=== PATIENT | female | born 1945 | race Caucasian/White ===

== ENCOUNTER 2025-03-15 10:09 | Outpatient (AMB) | payer OTHER, MEDICARE, SELFPAY ==
--- NOTE | 2025-03-15 10:14 | A.OFFPC_ITS ---
Vital Signs 03/15/25 10:17 Height 5 ft Weight 179 lb 8 oz BMI 35.1 BP 120/74 Blood Pressure Location Lt brachial Position Sitting Respiration 16 Pulse 78 Pulse Source Pulse Oximeter Temp 98.5 F Temp Source Oral Pulse Oximetry (%) 96 Oxygen Delivery Method Room Air Intake Visit Reasons: follow up diabetes, HTN Internal Medicine Doctor Required: No Accompanied by: Self / Same As Patient Allergies dextromethorphan (From Robitussin Cough and Cold CF) Allergy (Intermediate, Verified 03/15/25 10:14) Flushing guaifenesin (From Robitussin Cough and Cold CF) Allergy (Intermediate, Verified 03/15/25 10:14) Flushing phenylephrine (From Robitussin Cough and Cold CF) Allergy (Intermediate, Verified 03/15/25 10:14) Flushing atorvastatin Adverse Reaction (Severe, Verified 03/15/25 10:14) ABNORMAL LFTS Medication List - Last Reconciled 03/15/25 by Silvia Kaufman MD allopurinol 200 mg PO DAILY aspirin (Adult Low Dose Aspirin) 81 mg PO DAILY cholecalciferol (vitamin D3) 25 mcg PO DAILY cyclosporine 0.05% drps ophthalmic (eye) BID doxycycline hyclate 100 mg PO BID epinephrine IM flaxseed oil 1,000 mg PO DAILY levothyroxine 137 mcg PO DAILY mecobalamin (vitamin B12) 1,000 mcg PO .every other day metformin 500 mg PO TID omega 9-bfo-snp-fish oil 1,000 (120-180) mg (Fish Oil) 1 cap PO DAILY valsartan-hydrochlorothiazide 80-12.5 mg 1 tab PO DAILY Tobacco use date assessed: 03/15/25 Fall risk assessment: No Falls in past year Last assessed Fall Risk: 03/15/25 Dental Screening Dental Screen Date: 03/15/25 Did you have a dental visit in the last 12 months?: Yes Did you have a dental problem in the last 6 months where you did not have access to dental care?: No Was dental information given to patient?: Patient has dentist HPI HPI Comments History of Present Illness Details History of Present Illness The patient is an 80-year-old female presenting for a follow-up of Type 2 Diabetes Mellitus, HTN, hypothyroidism, alongside concerns of reduction in height over recent years. Historically, she experienced a decrease in height. Her current management for diabetes includes regular monitoring with A1c testing, while her blood pressure is controlled on antihypertensive medications. She noted lower extremity edema, more noticeable in lateral malleolus of left lower extremity. Has also noted similar symptoms when she had gout flares. The patient continually manages everyday activities and seeks more engaging social activities. Hypothyroidism- on levothyroxine Diabetes mellitus type 2- on metformin Gout- on allopurinol Pancreatic pseudocyst- has had imaging done at [facility]- due for repeat CBC, has seen environmental communications specialist in the past Sjogren's syndrome-stable, established with opthalmologist Dr. Valdovinos Review of Systems - General: Denies significant weight los s; reports reduction in height. - Cardiovascular: Reports episodic ankle edema, particularly on the left. - Gastrointestinal: constipation. - Genitourinary: Reports nocturia, rare incontinence. - Neurological: Denies significant dizzi ness or syncope. - Musculoskeletal: Reports reduction in height. - Psychiatric: occasional loneliness in setting of being a PHYSICAL EXAMINATION General: NAD Chest: CTABL. Card: normal s1, s2, soft murmur across precordium Abd: SNTND, +BS Extremities: trace edema bilaterally, left lateral malleolus- small effusion noted Neuro: AOX3 Assessment and Plan 1. Type 2 Diabetes Mellitus Managed with ongoing A1c testing 2. Essential Hypertension Current treatment continues; blood pressure monitoring planned. 3. Height Reduction Bone density scan scheduled to evaluate potential causes. 4. Peripheral Edema Advised regular leg elevation; monitoring signs of flare-ups linked to gout. P atient to [facility] office if any increased swelling and pain for possible imaging. 5. Sj?gren?s Syndrome Maintained oral hygiene practices 6. Preventative Reviewed recent immunizations: RSV and influenza. Plan Management of Type 2 Diabetes Mellitus includes regular A1c testing. Essential Hypertension is controlled with current medication and blood pressure checks. Height loss prompts a bone density test to investigate potential osteoporosis. We discussed leg elevation to manage edema. Discussion Notes I discussed the importance of maintaining control over diabetes and hypertension through regular testing and monitoring. The patient is scheduled for bone density evaluation, addressing her concerns of reduced stature and potential osteoporosis. Highlighted the importance of regular leg elevation. Patient Instructions - Continue monitoring blood sugar levels and adhere to diabetes management plan. - Maintain current blood pressure medica tions and check levels regularly. - Schedule and complete bone density sca n. - Engage in social or support groups for emotional health support. - Elevate legs regularly to reduce swell ing. PFSH Medical History (Updated 03/15/25 @ 16:34 by Silvia Kaufman MD) Postmenopausal COPD (chronic obstructive pulmonary disease) Obstructive sleep apnea Spinal stenosis Gout History of ITP Surgical History (Updated 03/12/25 @ 10:24 by Silvia Kaufman MD) History of thyroid surgery History of nasal surgery History of cataract surgery History of carpal tunnel surgery H/O rotator cuff surgery Family History (Updated 03/15/25 @ 16:36 by Silvia Kaufman MD) Mother Coronary artery disease Maternal Grandmother Diabetes mellitus Father Coronary artery disease Alcoholism Paternal Grandfather Coronary artery disease Hypertension Brother Alcoholism Sister No problems noted. Son Throat cancer Social History Housing: House Patient Tobacco Use Status: Former Tobacco user Years Smoked: 46 years e-Cigarette/Vaping Use: Never Used service: No Current occupational status: retired Questionnaire AUDIT C Alcohol Use Questionnaire (AUDIT-C) 1. How often do you have a drink containing alcohol?: Never 3. How often do you have six or more drinks on one occasion?: Never Total Score: 0 Review of Systems Narrative - General: Denies significant weight loss; reports reduction in height. - Cardiovascular: Reports episodic ankle edema, particularly on the left. - Dermatological: Reports itching. - Gastrointestinal: Denies significant issues; uses protective measures against constipation. - Genitourinary: Reports nocturia, rare incontinence. - Neurological: Denies significant dizziness or syncope. - Musculoskeletal: Reports reduction in height. - Psychiatric: Reports occasional loneliness Physical exam (Primary Care) Vital Signs: Last Vital Signs Temp 98.5 F 03/15/25 10:17 Pulse 78 03/15/25 10:17 Resp 16 03/15/25 10:17 BP 120/74 03/15/25 10:17 Pulse Ox 96 03/15/25 10:17 Oxygen Delivery Method Room Air 03/15/25 10:17 BMI result Body Mass Index 35.1 Tobacco/Smoking Status: Tobacco use Status Tobacco use date assessed 03/15/25 03/15/25 10:16 Patient Tobacco Use Status Former Tobacco user 03/15/25 10:25 e-Cigarette/Vaping Use Never Used 03/15/25 10:25 Narrative General: NAD Chest: CTABL. Card: normal s1, s2, no m/r/g Abd: SNTND, +BS Extremities: no edema Neuro: AOX3 Coding Level of Care Code Est Pt Level 4 (59145) Complex EM visit Add On G2211 Diagnoses Controlled type 2 diabetes mellitus without complication, without long-term current use of insulin E11.9 Diabetes mellitus complication status: without complication Diabetes mellitus halfway insulin use: without termite control technician use Primary hypertension I10 Hypertension type: primary hypertension Acquired hypothyroidism E03.9 Hypothyroidism type: acquired Gout of multiple sites, unspecified cause, unspecified chronicity M10.9 Chronicity: unspecified Gout etiology: unspecified cause Gout site: multiple sites Sjogren's syndrome, with unspecified organ involvement M35.00 Sjogren organ or system involvement: unspecified organ involvement History of ITP Z86.2 Assessment & Plan Assessment & Plan (1) Diabetes mellitus type 2, controlled: Code(s): E11.9 - Type 2 diabetes mellitus without complications Category: Medical Qualifiers: Diabetes mellitus complication status: without complication Diabetes mellitus termite control technician insulin use: without halfway use Qualified Code(s): E11.9 - Type 2 diabetes mellitus without complications Plan: see above (2) Hypertension: Code(s): I10 - Essential (primary) hypertension Category: Medical Qualifiers: Hypertension type: primary hypertension Qualified Code(s): I10 - Essential (primary) hypertension Plan: see above (3) Hypothyroidism: Code(s): E03.9 - Hypothyroidism, unspecified Category: Medical Qualifiers: Hypothyroidism type: acquired Qualified Code(s): E03.9 - Hypothyroidism, unspecified Plan: see above (4) Gout: Code(s): M10.9 - Gout, unspecified Category: Medical Qualifiers: Chronicity: unspecified Gout etiology: unspecified cause Gout site: multiple sites Qualified Code(s): M10.9 - Gout, unspecified Plan: see above (5) Sjogren syndrome: Code(s): M35.00 - Sjogren syndrome, unspecified Category: Medical Qualifiers: Sjogren organ or system involvement: unspecified organ involvement Qualified Code(s): M35.00 - Sjogren syndrome, unspecified Plan: see above (6) History of ITP: Code(s): Z86.2 - Personal history of diseases of the blood and blood-forming organs and certain disorders involving the immune mechanism Category: Medical Plan: see above Orders: Orders Comprehensive Met. Panel Today E03.9 - Hypothyroidism, unspecified, E11.9 - Type 2 diabetes mellitus without complications, I10 - Essential (primary) hypertension Hemoglobin A1c Today E11.9 - Type 2 diabetes mellitus without complications Uric Acid Today M10.9 - Gout, unspecified XR DEXA axial skeleton Today Z78.0 - Asymptomatic menopausal state Magnesium Today I10 - Essential (primary) hypertension Microalbumin, Random (w Creat) Today E11.9 - Type 2 diabetes mellitus without complications Complete Blood Count Auto Diff Today Z86.2 - Personal history of diseases of the blood and blood-forming organs and certain disorders involving the immune mechanism TSH reflex Free T4 Today E03.9 - Hypothyroidism, unspecified Vitamin B12 and Folate Today E03.9 - Hypothyroidism, unspecified, M35.00 - Sjogren syndrome, unspecified Patient Instructions: SOMEONE WILL CALL YOU TO SCHEDULE BONE DENSITY GET LABS TODAY
[2025-03-15 10:17] VITALS: BP 120/74; PULSE 78; RESP 16; TEMP 36.9; O2SAT 96; BMI 35.1
== END 2025-03-15 11:30 | disposition home or self-care (01) ==
LOC: HO.HMCHD 10:10
PROVIDERS: PCP Internal Medicine; Visit Provider Internal Medicine
DX: E11.9 Type 2 diabetes mellitus without complications (principal); I10 Essential (primary) hypertension; E03.9 Hypothyroidism, unspecified; M10.9 Gout, unspecified; M35.00 Sjogren syndrome, unspecified; Z86.2 Personal history of diseases of the blood and blood-forming organs and certain disorders involving the immune mechanism

== ENCOUNTER → 2025-03-15 10:09 | Outpatient (BNVA) | payer OTHER, MEDICARE, SELFPAY | PROVIDERS: PCP Internal Medicine; Visit Provider Internal Medicine | DX: E11.9 Type 2 diabetes mellitus without complications (principal); I10 Essential (primary) hypertension; E03.9 Hypothyroidism, unspecified; M10.9 Gout, unspecified; M35.00 Sjogren syndrome, unspecified; K86.3 Pseudocyst of pancreas; Z86.2 Personal history of diseases of the blood and blood-forming organs and certain disorders involving the immune mechanism; Z79.84 Long term (current) use of oral hypoglycemic drugs; Z79.899 Other long term (current) drug therapy | CPT/HCPCS: 99212 ==

== ENCOUNTER 2025-03-15 11:37 | Outpatient (REF) | payer OTHER, MEDICARE, SELFPAY ==
[2025-03-15 12:01] LABS: MANUAL DIFF FLAG NO
[2025-03-15 12:09] LABS: Mean Corpuscular HGB Conc 32.5 g/dl (31.0-35.0); NRBC Abs Auto 0.000 X10*3/uL (0.0-0.012); NRBC Pct Auto 0.0 /100WBC (0.0-0.2); PLT CLUMP 1; SCAN SMEAR FLAG 1
[2025-03-15 12:11] LABS: Hematocrit 38.5 % (37.0-47.0); Hemoglobin 12.5 g/dl (12.0-16.0); Imm Gran Abs Auto 0.02 X10*3/uL (0.00-0.03); Imm Gran Pct Auto 0.3 % (0.0-0.4); Lymphocytes Absolute Auto 2.7 X10*3/uL (1.2-4.9); Mean Corpuscular Hemoglobin 28.5 pg (27.0-33.0); Mean Corpuscular Volume 87.7 fL (80.0-98.0); Platelet Count 122 X10*3/uL (160-400); Red Blood Count 4.39 X10*6/uL (4.20-5.50); White Blood Count 7.2 X10*3/uL (4.8-10.8)
[2025-03-15 12:44] LABS: Alanine Aminotransferase 17 U/L (0-31); Albumin Level 4.7 g/dL (3.5-5.0); Alkaline Phosphatase 66 U/L (39-117); Anion Gap 16 (12-20); Aspartate Amino Transferase 23 U/L (5-31); Blood Urea Nitrogen 21 mg/dL (9-16); Calcium 9.6 mg/dL (8.4-10.2); Carbon Dioxide 25 mmol/L (22-29); Chloride 104 mmol/L (96-108); Estimated Glomerular Filt Rate 52; Potassium 3.9 mmol/L (3.3-5.1); Sodium 141 mmol/L (135-145); Total Protein 7.2 g/dL (6.5-8.0); Uric Acid 5.1 mg/dL (2.4-5.7)
[2025-03-15 13:15] LABS: Folate 9.5 ng/mL (> or = 4.0); Vitamin B12 1020 pg/mL (200-900)
[2025-03-15 13:49] LABS: Magnesium 1.7 mg/dL (1.6-2.6)
[2025-03-15 14:14] LABS: Microalbum/Creatinine Ratio Ur 35.1 ug/mg cr (<30)
[2025-03-15 14:27] LABS: Free T4 (Free Thyroxine) 1.38 ng/dL (0.71-1.85)
--- OUTSIDE RECORDS SUMMARY | 2025-03-15 14:30 | XMS_ITS | Clinical Summary ---
Author Organization [facility] Address [address] [place] [id number] Phone Care Team Providers Care Faculty Physician Name Role Phone Silvia Kaufman MD Primary Care Provider + Social History Tobacco Use Types Packs/Day Years Used Date Smoking Tobacco: Never Assessed Education Answer Date Recorded Are you interested in more education? Not on jairo e 07/03/2024 Are you concerned about learning? Not on file 07/03/2024 No 07/03/2024 No 07/03/2024 Digital Access Answer Date Recorded No 07/03/2024 No 07/03/2024 Reliable internet access at home? Not on file 07/03/2024 Device with a working camera? Not on file Comments Unknown Sex and Gender Information Value Date Recorded Sex Assigned at Not on file Legal Sex Female 12:39 PM EST Gender Identity Not on file Sexual Orientation Not on file Plan of Treatment Health Maintenance Due Date Last Done Comments Adult Td,Tdap Booster 1945 DEPRESSION SCREENING 1955 PNEUMOCOCCAL VACCINES (50+ y ears) (1 of 1 - PCV) 1993 ZOSTER VACCINES (1 of 2) 1993 OSTEOPOROSIS SCREENING INITI AL (ONE-TIME) 01/12/2008 RSV VACCINE (1 - 1-dose 75+ series) 2018 INFLUENZA VACCINE (#1) 2024 COVID-19 VACCINE ( - 2024-2 6 season) 2025 HEPATITIS A VACCINES Aged Out No long er eligible based on patient's age to complete this topic HIB VACCINES Aged Out No longer eligi ble based on patient's age to complete this topic MENINGOCOCCAL VACCINES (ACWY) Aged Out No longer eligible based on patient's age to complete this topic MENINGOCOCCAL VACCINES (B) Aged Out N o longer eligible based on patient's age to complete this topic Medical Devices Not on file Insurance MEDICARE PART A & B [facility] MEDICARE SUPPLEMENT MEDICARE PART A & B FOR LIFE MEDICARE SUPPLEMENT MEDICARE PART A & B FOR LIFE MEDICARE SUPPLEMENT MEDICARE PART A & B FOR LIFE MEDICARE SUPPLEMENT MEDICARE PART A & B FOR LIFE MEDICARE SUPPLEMENT MEDICARE PART A & B FOR LIFE MEDICARE SUPPLEMENT Care Teams Faculty Physician Relationship Specialty Start Date End Date Silvia Kaufman MD [facility] [place] [address] PCP - General Internal Medicine 06/30/24 Additional Source Comments The information contained in this document represents components of the legal health record. It is not the complete legal health record.[facility]
== END 2025-03-15 11:38 | disposition home or self-care (01) ==
LOC: HO.10HDL 11:37
PROVIDERS: Visit Provider Internal Medicine
DX: E11.9 Type 2 diabetes mellitus without complications (principal); M35.00 Sjogren syndrome, unspecified; I10 Essential (primary) hypertension; E03.9 Hypothyroidism, unspecified; M10.9 Gout, unspecified; Z86.2 Personal history of diseases of the blood and blood-forming organs and certain disorders involving the immune mechanism
CPT/HCPCS: 36415; 80053; 82043; 82570; 82607; 82746; 83036; 83735; 84439; 84443; 84550; 85025

== ENCOUNTER 2025-05-26 09:35 | Outpatient (REF) | payer MEDICARE, OTHER, SELFPAY ==
--- OUTSIDE RECORDS SUMMARY | 2025-05-26 10:04 | XMS_ITS | Patient Health Record ---
[facility] Address [address] [place] [address] Care Team Providers Care Preparation Operator Name Role Phone Silvia Kaufman Primary Care Provider Vincent Johnson Unavailable [phone] Allergies Allergen (clinical drug ingredient) Drug/Non Drug Allergy documented on EMR Reaction Allergy Type Onset Date Status sulfa can't breathe Drug Allergy Act tran Reason For Referral No Information Medications Medication SIG (Take, Route, Frequency, Duration) Notes Start Date End Date Status Extra-Depth Diabetic Shoes with 3 Pair Custom heat-molded multi-density innersoles . for 1 year . Dx: 250.00,735.4,701; Duration: . Active metFORMIN HCl 500 MG 1 tablet with meals Orally Twice a day Active Doxycycline Hyclate 100 MG TAKE 1 TABLET TWICE A DAY Oral; Duration: 30 Active Zarontin Active rOPINIRole HCl 1 MG TAKE 1 TABLET BY CORNEL TH EVERY EVENING Oral; Duration: 30 Not-Taking Flaxseed Oil 1000 MG Orally 09/14/2013 Not-Taking Fish Oil 1000 MG 1 capsule Orally Onc e a day 09/14/2013 Not-Taking Restasis Active Valsartan-hydroCHLOROthia zide 80-12.5 MG 1 tablet Orally Once a day 09/14/2013 Active Immunizations Vaccine Route Administration Date Status Comme nts Influenza Unknown 02/29/2016 Administered Social History Tobacco use other than smoking: Question Answer Notes Are you an other tobacco user? No Problems Problem Type SNOMED Code ICD Code Onset Dates Problem Status W/U Status Risk Notes Problem Acquired hallux valgus (19096438) Hallux valgus (acquired), left foot (M20.12) Active confirmed Problem Acquired hallux valgus (41289155) Hallux valgus (acquired), right foot (M20.11) Active confirmed Problem Polyneuropathy due to type 2 diabetes mellitus (748464771) Type 2 diabetes mellitus with diabetic polyneuropathy (E11.42) Active confirmed Plan Of Treatment Pending Test Test Name Order Date [id number] NAIL, 6 OR MORE 09/14/2013 [id number] NAIL, 6 OR MORE 09/10/2014 [id number] NAIL, 6 OR MORE 09/09/2015 [id number] NAIL, 6 OR MORE 09/07/2016 [id number] SKIN LESIONS, OVER 4 09/08/19 17 [id number] SKIN LESIONS, OVER 4 09/09/19 16 [id number] SKIN LESIONS, OVER 4 09/11/19 15 Insurance Providers Payer Name Payer Address Payer Phone Subscriber Number Group Number Insured Name Patient Relationship to Insured Coverage Start Date Coverage End Date Medicare [employer] [address] [place] [address] [phone] [id number] Jennifer Vides Self - patient is the insured for Life [address] [place] [address] [id number] Ethan Vides Spouse - patient is the spouse of the insured Medical (General) History Medical History History ICD Code Cataracts Chicken pox COPD Diabetes mellitus High blood pressure Lung disease Measles osteoarthritis Sjogren syndrome Surgical History Surgery Date(Month/Year) rotator cuff tear repair 03/28/2012 carpal tunnel surgery 1986 Hospitalization History Reason Date(Month/Year) Rodirguez- bee sting 10/30/13
--- OUTSIDE RECORDS SUMMARY | 2025-05-26 10:04 | XMS_ITS | Clinical Summary ---
Author Organization [facility] Address [address] [place] [phone] Phone Care Team Providers Care Recycling Attendant Name Role Phone Silvia Kaufman MD Primary [...] Insurance MEDICARE PART A & B FOR [facility] MEDICARE SUPPLEMENT [facility] Address: [id number] [place] [address] MEDICARE PART A & B FOR LIFE MEDICARE SUPPLEMENT MEDICARE PART A & B FOR LIFE MEDICARE SUPPLEMENT [facility] Address: [address] [address] MEDICARE PART A & B FOR LIFE MEDICARE SUPPLEMENT [facility] Address: [address] [address] MEDICARE PART A & B FOR LIFE MEDICARE SUPPLEMENT [facility] Address: [address] [address] MEDICARE PART A & B FOR LIFE MEDICARE SUPPLEMENT [facility] Address: [facility] [address] [place] [address] Care Teams Recycling Attendant Relationship Specialty Start Date End Date Silvia Kaufman MD PCP - General Internal Medicine 06/30/24 Additional Source Comments The information contained in this document represents components of the legal health record. It is not the complete legal health record.[facility]
[2025-05-26 12:15] LABS: Magnesium 1.6 mg/dL (1.6-2.6)
== END 2025-05-26 09:36 | disposition home or self-care (01) ==
LOC: HO.WFDLDS 09:35
PROVIDERS: Visit Provider Internal Medicine
DX: I10 Essential (primary) hypertension (principal); E03.9 Hypothyroidism, unspecified
CPT/HCPCS: 36415; 83735; 84443